=== PATIENT | female | born 1945 | race African-American/Black ===

== ENCOUNTER 2021-03-25 20:30 | Observation (INO) ==
[2021-03-26] MEDS ORDERED: ONDANSETRON 4 MG/2 ML VIAL IV STA (00:54)
[2021-03-26 02:17] LABS: Basophils % 0.2 % (0.0-0.8); Hematocrit 34.1 VOL% (35.7-47.0); Hemoglobin 11.2 GM/DL (12.0-16.0); Immature Granulocytes % 0.6 %; Immature Granulocytes Absolute 0.06 #; Lymphocytes # 1.5 10*3/uL (1.4-4.0); Lymphocytes % 14.2 % (21.3-54.2); Mean Corpuscular HGB Conc 32.8 GM/DL (32-36); Mean Platelet Volume 9.5 FL (9.6-12.0); Monocytes % 0.9 % (1.7-12.7); Neutrophils % 84.1 % (38.7-73.9); Platelet Count 334 T/CUMM (130-400); Red Blood Count 3.48 MC/CUMM (3.8-5.5); White Blood Count 10.6 T/CUMM (4-12)
[2021-03-26 02:32] LABS: INR 3.6; PT Patient Result 36.6 SECS (10.5-12.0)
[2021-03-26 02:37] LABS: Bacteria,Urine Occasional /HPF (Few); Bilirubin,Urine Negative (Negative); Blood, Urine Negative (Negative); Glucose,Urine (UA) Negative (Negative); Ketones,Urine Negative (Negative); Mucus,Urine Occasional /LPF (Occasional); Nitrite,Urine Negative (Negative); Protein,Urine Negative; RBC,Urine 4 /HPF (0-4); Squamous Epithelial Cell,Urine Occasional /HPF (0-10); Urine Appearance CLEAR (Clear); Urine Color Yellow (Yellow); Urine Specific Gravity 1.021 (1.001-1.035); Urine Urobilinogen < 2.0 EU/DL (0.2-1.0)
[2021-03-26] MEDS ORDERED: ALBUTEROL/IPRATROPIUM 3 ML NEB RESP TX STA (02:41)
[2021-03-26 02:52] LABS: Albumin 4.1 G/DL (3.4-5.0); Bilirubin,Total 0.4 MG/DL (0.2-1.0); Calcium 9.8 MG/DL (8.5-10.1); Ferritin 67.5 ng/ml (8-252); Potassium 4.3 MMOL/L (3.5-5.1); Total Protein 8.4 G/DL (6.4-8.2)
[2021-03-26] MEDS ORDERED: GLUCAGON 1 MG VIAL IM PRN (05:24)
[2021-03-26] MEDS ORDERED: DEXTROSE 50% 25 GM/50 ML VIAL IV PRN (05:24)
[2021-03-26] MEDS ORDERED: diphenhydrAMINE CAP 25 MG CAPSULE PO PRN (05:24)
[2021-03-26] MEDS ORDERED: hydrALAZINE 20 MG/1 ML VIAL IV PRN (05:24)
[2021-03-26] MEDS ORDERED: ONDANSETRON 4 MG/2 ML VIAL IV PRN (05:24)
[2021-03-26] MEDS ORDERED: NICOTINE 21 MG/24 HR PATCH TRANSDERM PRN (05:24)
[2021-03-26] MEDS ORDERED: guaiFENesin/DM ER 600-30 MG TABLET PO PRN (05:24)
[2021-03-26] MEDS ORDERED: SODIUM CHLORIDE 0.9% 1,000 ML IV SCH (05:30)
[2021-03-26] MEDS: SODIUM CHLORIDE 0.9% 500 ML IV ONE ×2 (05:51→05:57)
[2021-03-26 05:54] VITALS: BP 125/57
[2021-03-26] MEDS ORDERED: NITROGLYCERIN SL 0.4 MG TABLET SL PRN (06:40)
[2021-03-26] MEDS ORDERED: ALBUTEROL/IPRATROPIUM 3 ML NEB RESP TX SCH (07:00)
[2021-03-26] MEDS ORDERED: SPIRONOLACTONE 25 MG TABLET PO SCH (09:00)
[2021-03-26] MEDS ORDERED: valACYclovir 500 MG TABLET PO SCH (09:00)
[2021-03-26] MEDS ORDERED: ATORVASTATIN 80 MG TABLET PO SCH ×2 (09:00→21:00)
[2021-03-26] MEDS ORDERED: TOPIRAMATE 25 MG TABLET PO SCH (09:00)
[2021-03-26] MEDS ORDERED: ENOXAPARIN 40 MG/0.4 ML SYRINGE SUBCUT SCH (09:00)
[2021-03-26] MEDS ORDERED: WARFARIN 3 MG TABLET PO SCH (09:00)
[2021-03-26] MEDS ORDERED: amLODIPine 5 MG TABLET PO SCH (09:00)
[2021-03-26] MEDS ORDERED: GABAPENTIN 600 MG TABLET PO SCH (09:00)
[2021-03-26] MEDS ORDERED: METOPROLOL TARTRATE 25 MG TABLET PO SCH (09:00)
[2021-03-26] MEDS ORDERED: DONEPEZIL 10 MG TABLET PO SCH (21:00)
== END 2021-03-26 14:19 | disposition home or self-care (01) ==
LOC: N.ED 20:30 → N.EDINP 20:30 → SUATTDRO 03-26 03:30 → N.CC 03-26 05:38
PROVIDERS: ADMIT Internal Medicine; ATTEND Internal Medicine

== ENCOUNTER 2021-06-12 16:39 | Inpatient (IN) ==
[2021-06-12] MEDS ORDERED: MORPHINE 2 MG/1 ML SYRINGE IV STA (17:08)
[2021-06-12] MEDS ORDERED: ONDANSETRON 4 MG/2 ML VIAL IV STA (17:08)
[2021-06-12 17:34] LABS: Basophils % 0.5 % (0.0-0.8); Eosinophils # 0.1 10*3/uL (0.0-0.87); Eosinophils % 2.1 % (0.00-10.9); Hematocrit 39.3 VOL% (35.7-47.0); Hemoglobin 13.1 GM/DL (12.0-16.0); Immature Granulocytes % 0.5 %; Immature Granulocytes Absolute 0.02 #; Lymphocytes # 1.5 10*3/uL (1.4-4.0); Lymphocytes % 33.2 % (21.3-54.2); Mean Corpuscular HGB Conc 33.3 GM/DL (32-36); Mean Corpuscular Volume 96.6 FL (87-102); Mean Platelet Volume 9.1 FL (9.6-12.0); Neutrophils % 52.7 % (38.7-73.9); Platelet Count 247 T/CUMM (130-400); Red Blood Count 4.07 MC/CUMM (3.8-5.5); White Blood Count 4.4 T/CUMM (4-12)
[2021-06-12 18:02] LABS: Albumin 3.5 G/DL (3.4-5.0); Bilirubin,Total 0.7 MG/DL (0.20-1.00); Calcium 9.1 MG/DL (8.5-10.1); Osmolality,Calculated 275.7 MOS/KG (273-304); Potassium 2.7 MMOL/L (3.5-5.1); Total Protein 7.7 G/DL (6.4-8.2)
[2021-06-12] MEDS ORDERED: SODIUM CHLORIDE 0.9% 500 ML IV STA (18:41)
[2021-06-12] MEDS ORDERED: POTASSIUM BICARB EFFERVESCENT 25 MEQ TAB.EFF PO STA (18:41)
[2021-06-12] MEDS ORDERED: POTASSIUM CHLORIDE RIDER 10 MEQ/100 ML PREMIX IV ONE (18:41)
[2021-06-12] MEDS ORDERED: diphenhydrAMINE CAP 25 MG CAPSULE PO PRN (20:08)
[2021-06-12] MEDS ORDERED: ACETAMINOPHEN 325 MG TABLET PO PRN (20:08)
[2021-06-12] MEDS ORDERED: DEXTROSE 50% 25 GM/50 ML VIAL IV PRN (20:08)
[2021-06-12] MEDS ORDERED: MAGNESIUM SULF RIDER 4 GM/100 ML PREMIX IV PRN (20:08)
[2021-06-12] MEDS ORDERED: GLUCAGON 1 MG VIAL IM PRN (20:08)
[2021-06-12] MEDS ORDERED: SIMETHICONE CHEW 125 MG TABLET PO PRN (20:19)
[2021-06-12] MEDS ORDERED: ONDANSETRON 4 MG/2 ML VIAL IV PRN (20:19)
[2021-06-12] MEDS: INSULIN REGULAR 100 UNIT/ML SUBCUT SCH (23:45)
[2021-06-13] MEDS: HYDROmorphone 2 MG/1 ML VIAL IV PRN ×3 (02:34→16:45)
[2021-06-13 06:17] LABS: Basophils % 0.4 % (0.0-0.8); Eosinophils # 0.2 10*3/uL (0.0-0.87); Eosinophils % 3.1 % (0.00-10.9); Hematocrit 35.7 VOL% (35.7-47.0); Hemoglobin 11.9 GM/DL (12.0-16.0); Immature Granulocytes % 0.4 %; Immature Granulocytes Absolute 0.02 #; Lymphocytes # 1.8 10*3/uL (1.4-4.0); Lymphocytes % 35.6 % (21.3-54.2); Mean Corpuscular HGB Conc 33.3 GM/DL (32-36); Mean Platelet Volume 9.4 FL (9.6-12.0); Monocytes % 12.8 % (1.7-12.7); Neutrophils % 47.7 % (38.7-73.9); Platelet Count 240 T/CUMM (130-400); Red Blood Count 3.72 MC/CUMM (3.8-5.5); White Blood Count 5.1 T/CUMM (4-12)
[2021-06-13 07:01] LABS: Calcium 8.8 MG/DL (8.5-10.1); Osmolality,Calculated 274.5 MOS/KG (273-304); Potassium 2.7 MMOL/L (3.5-5.1); Risk Ratio 5.47; Thyroid Stimulating Hormone 1.54 uIU/ml (0.358-3.74); VLDL Cholesterol 35.6 MG/DL
[2021-06-13 07:17] LABS: Platelet Estimate Normal
[2021-06-13 07:18] LABS: Anisocytosis 1+; Macrocytosis 1+; Tear Drop Cells Few
[2021-06-13] MEDS: INSULIN REGULAR 100 UNIT/ML SUBCUT SCH ×4 (08:09→20:47)
[2021-06-13] MEDS: PANTOPRAZOLE 40 MG TABLET PO SCH (09:27)
[2021-06-13] MEDS: POTASSIUM CHLORIDE RIDER 10 MEQ/100 ML PREMIX IV PRN ×8 (10:20→23:22)
[2021-06-13] MEDS ORDERED: MAGNESIUM SULF RIDER 2 GM/50 ML PREMIX IV ONE (13:18)
[2021-06-13] MEDS: POTASSIUM CHLORIDE RIDER 10 MEQ/100 ML PREMIX IV SCH ×3 (13:39→14:59)
[2021-06-13] MEDS: HYOSCYAMINE 0.125 MG TABLET PO SCH ×2 (13:55→18:05)
[2021-06-13 14:23] LABS: INR 1.1; PT Patient Result 12.5 SECS (10.5-12.0)
[2021-06-13] MEDS: HEPARIN DRIP 25,000 UNITS/500 ML PREMIX IV SCH (16:45)
[2021-06-13 23:23] LABS: INR 1.1; PT Patient Result 12.4 SECS (10.5-12.0)
[2021-06-14] MEDS: POTASSIUM CHLORIDE RIDER 10 MEQ/100 ML PREMIX IV PRN (00:26)
[2021-06-14] MEDS: HYOSCYAMINE 0.125 MG TABLET PO SCH ×4 (02:12→18:10)
[2021-06-14 05:23] LABS: Basophils % 0.5 % (0.0-0.8); Eosinophils # 0.1 10*3/uL (0.0-0.87); Eosinophils % 2.1 % (0.00-10.9); Hemoglobin 12.2 GM/DL (12.0-16.0); Immature Granulocytes % 0.4 %; Immature Granulocytes Absolute 0.02 #; Lymphocytes # 1.2 10*3/uL (1.4-4.0); Lymphocytes % 21.8 % (21.3-54.2); Mean Corpuscular Volume 98.4 FL (87-102); Mean Platelet Volume 9.7 FL (9.6-12.0); Monocytes % 9.7 % (1.7-12.7); Neutrophils % 65.5 % (38.7-73.9); Platelet Count 269 T/CUMM (130-400); Red Blood Count 3.76 MC/CUMM (3.8-5.5); Red Cell Distribution Width 12.9 % (9.3-17.3); White Blood Count 5.7 T/CUMM (4-12)
[2021-06-14 05:29] LABS: INR 1.1; PT Patient Result 12.1 SECS (10.5-12.0)
[2021-06-14 05:34] LABS: Calcium 8.9 MG/DL (8.5-10.1); Osmolality,Calculated 271.8 MOS/KG (273-304); Potassium 3.8 MMOL/L (3.5-5.1)
[2021-06-14] MEDS: MAGNESIUM SULF RIDER 2 GM/50 ML PREMIX IV PRN (06:29)
[2021-06-14] MEDS: PANTOPRAZOLE 40 MG TABLET PO SCH (08:35)
[2021-06-14] MEDS: INSULIN REGULAR 100 UNIT/ML SUBCUT SCH ×4 (08:36→22:34)
[2021-06-14 10:42] LABS: INR 1.1; PT Patient Result 12.3 SECS (10.5-12.0)
[2021-06-14] MEDS: HYDROmorphone 2 MG/1 ML VIAL IV PRN (11:54)
[2021-06-14] MEDS ORDERED: MELATONIN 3 MG TABLET PO PRN (14:55)
[2021-06-14] MEDS ORDERED: tiZANidine 4 MG TABLET PO PRN (14:55)
[2021-06-14] MEDS: GABAPENTIN 600 MG TABLET PO SCH ×2 (16:45→22:34)
[2021-06-14 17:52] LABS: INR 1.1; PT Patient Result 11.7 SECS (10.5-12.0)
[2021-06-14] MEDS: DONEPEZIL 10 MG TABLET PO SCH (22:34)
[2021-06-14] MEDS: METOPROLOL TARTRATE 25 MG TABLET PO SCH (22:34)
[2021-06-14] MEDS: QUEtiapine 100 MG TABLET PO SCH (22:34)
[2021-06-14 23:40] LABS: INR 1.1; PT Patient Result 11.9 SECS (10.5-12.0)
[2021-06-15] MEDS: HYOSCYAMINE 0.125 MG TABLET PO SCH ×4 (02:00→18:00)
[2021-06-15] MEDS: HEPARIN DRIP 25,000 UNITS/500 ML PREMIX IV SCH ×2 (02:00→15:36)
[2021-06-15 05:53] LABS: Basophils % 0.4 % (0.0-0.8); Eosinophils # 0.2 10*3/uL (0.0-0.87); Eosinophils % 3.2 % (0.00-10.9); Hematocrit 36.2 VOL% (35.7-47.0); Hemoglobin 11.9 GM/DL (12.0-16.0); Immature Granulocytes % 0.2 %; Immature Granulocytes Absolute 0.01 #; Lymphocytes # 1.4 10*3/uL (1.4-4.0); Lymphocytes % 28.6 % (21.3-54.2); Mean Corpuscular HGB Conc 32.9 GM/DL (32-36); Mean Corpuscular Volume 98.4 FL (87-102); Mean Platelet Volume 9.9 FL (9.6-12.0); Monocytes % 9.5 % (1.7-12.7); Neutrophils % 58.1 % (38.7-73.9); Platelet Count 281 T/CUMM (130-400); Red Blood Count 3.68 MC/CUMM (3.8-5.5); Red Cell Distribution Width 12.8 % (9.3-17.3); White Blood Count 4.8 T/CUMM (4-12)
[2021-06-15 05:54] LABS: Calcium 9.2 MG/DL (8.5-10.1); Osmolality,Calculated 275.4 MOS/KG (273-304); Potassium 3.4 MMOL/L (3.5-5.1)
[2021-06-15 05:54] LABS: INR 1.1; PT Patient Result 11.8 SECS (10.5-12.0)
[2021-06-15 06:18] LABS: Hypochromasia 1+; Microcytosis 1+; Ovalocytes Slight; Platelet Estimate Adequate
[2021-06-15] MEDS: INSULIN REGULAR 100 UNIT/ML SUBCUT SCH ×4 (07:55→20:50)
[2021-06-15] MEDS: METOPROLOL TARTRATE 25 MG TABLET PO SCH ×2 (08:26→20:50)
[2021-06-15] MEDS: CHOLECALCIFEROL 5,000 UNIT TABLET PO SCH (08:26)
[2021-06-15] MEDS: SPIRONOLACTONE 25 MG TABLET PO SCH (08:26)
[2021-06-15] MEDS: GABAPENTIN 600 MG TABLET PO SCH ×3 (08:26→20:50)
[2021-06-15] MEDS: PANTOPRAZOLE 40 MG TABLET PO SCH (08:27)
[2021-06-15] MEDS: amLODIPine 5 MG TABLET PO SCH (08:27)
[2021-06-15] MEDS ORDERED: ATORVASTATIN 80 MG TABLET PO SCH (09:00)
[2021-06-15 11:14] LABS: PT Patient Result 11.5 SECS (10.5-12.0)
[2021-06-15] MEDS ORDERED: POTASSIUM CHLORIDE 10 MEQ TABLET PO ONE (14:30)
[2021-06-15] MEDS ORDERED: BISACODYL 5 MG TABLET PO ONE (14:30)
[2021-06-15 17:07] LABS: PT Patient Result 11.5 SECS (10.5-12.0)
[2021-06-15] MEDS ORDERED: POLYETHYLENE GLYCOL POWDER 255 GM BOTTLE PO ONE (18:00)
[2021-06-15] MEDS: QUEtiapine 100 MG TABLET PO SCH (20:50)
[2021-06-15] MEDS: ATORVASTATIN 80 MG TABLET PO SCH (20:50)
[2021-06-15] MEDS: DONEPEZIL 10 MG TABLET PO SCH (20:50)
[2021-06-15] MEDS ORDERED: MAGNESIUM CITRATE 300 ML BOTTLE PO ONE (21:00)
[2021-06-16] MEDS: HYOSCYAMINE 0.125 MG TABLET PO SCH ×4 (01:17→18:40)
[2021-06-16 05:17] LABS: Basophils % 0.5 % (0.0-0.8); Eosinophils # 0.1 10*3/uL (0.0-0.87); Eosinophils % 2.1 % (0.00-10.9); Hematocrit 37.6 VOL% (35.7-47.0); Hemoglobin 12.5 GM/DL (12.0-16.0); Immature Granulocytes % 0.7 %; Immature Granulocytes Absolute 0.04 #; Lymphocytes # 1.5 10*3/uL (1.4-4.0); Lymphocytes % 25.8 % (21.3-54.2); Mean Corpuscular HGB Conc 33.2 GM/DL (32-36); Mean Corpuscular Volume 98.4 FL (87-102); Mean Platelet Volume 9.6 FL (9.6-12.0); Monocytes % 9.4 % (1.7-12.7); Neutrophils % 61.5 % (38.7-73.9); Platelet Count 288 T/CUMM (130-400); Red Blood Count 3.82 MC/CUMM (3.8-5.5); White Blood Count 5.7 T/CUMM (4-12)
[2021-06-16 05:28] LABS: PT Patient Result 11.2 SECS (10.5-12.0)
[2021-06-16 05:37] LABS: Calcium 9.7 MG/DL (8.5-10.1); Osmolality,Calculated 273.5 MOS/KG (273-304); Potassium 3.2 MMOL/L (3.5-5.1)
[2021-06-16] MEDS: INSULIN REGULAR 100 UNIT/ML SUBCUT SCH ×4 (08:51→21:17)
[2021-06-16] MEDS: amLODIPine 5 MG TABLET PO SCH (09:47)
[2021-06-16] MEDS: METOPROLOL TARTRATE 25 MG TABLET PO SCH ×2 (09:47→21:16)
[2021-06-16] MEDS: SPIRONOLACTONE 25 MG TABLET PO SCH (09:47)
[2021-06-16] MEDS: CHOLECALCIFEROL 5,000 UNIT TABLET PO SCH (09:47)
[2021-06-16] MEDS: PANTOPRAZOLE 40 MG TABLET PO SCH (09:47)
[2021-06-16] MEDS: GABAPENTIN 600 MG TABLET PO SCH ×3 (09:47→21:17)
[2021-06-16] MEDS: LACTATED RINGERS 1,000 ML IV SCH (10:46)
[2021-06-16] MEDS ORDERED: propofoL 200 MG/20 ML VIAL IV ONE (12:59)
[2021-06-16] MEDS ORDERED: LIDOCAINE 2% 5 ML VIAL ONE (12:59)
[2021-06-16] MEDS: HYDROmorphone 2 MG/1 ML VIAL IV PRN (14:46)
[2021-06-16] MEDS: POTASSIUM CHLORIDE RIDER 10 MEQ/100 ML PREMIX IV PRN ×4 (15:25→22:38)
[2021-06-16] MEDS: HYDROCORTISONE 25 MG SUPP RECTAL PRN (17:47)
[2021-06-16] MEDS: QUEtiapine 100 MG TABLET PO SCH (21:17)
[2021-06-16] MEDS: DONEPEZIL 10 MG TABLET PO SCH (21:17)
[2021-06-16] MEDS: ATORVASTATIN 80 MG TABLET PO SCH (21:17)
[2021-06-16] MEDS: AMITRIPTYLINE 25 MG TABLET PO SCH (21:17)
[2021-06-17] MEDS: HYOSCYAMINE 0.125 MG TABLET PO SCH ×6 (01:08→18:01)
[2021-06-17 06:06] LABS: Basophils % 0.9 % (0.0-0.8); Eosinophils # 0.1 10*3/uL (0.0-0.87); Eosinophils % 3.2 % (0.00-10.9); Hematocrit 30.2 VOL% (35.7-47.0); Immature Granulocytes % 0.6 %; Immature Granulocytes Absolute 0.02 #; Lymphocytes # 1.1 10*3/uL (1.4-4.0); Lymphocytes % 32.3 % (21.3-54.2); Mean Corpuscular HGB Conc 32.1 GM/DL (32-36); Mean Corpuscular Volume 103.8 FL (87-102); Mean Platelet Volume 9.2 FL (9.6-12.0)
[2021-06-17 06:18] LABS: Calcium 9.2 MG/DL (8.5-10.1); Hemoglobin 9.7 GM/DL (12.0-16.0); Osmolality,Calculated 276.3 MOS/KG (273-304); Platelet Count 173 T/CUMM (130-400); Potassium 4.1 MMOL/L (3.5-5.1); Red Blood Count 2.91 MC/CUMM (3.8-5.5); White Blood Count 3.5 T/CUMM (4-12)
[2021-06-17 06:18] LABS: PT Patient Result 11.1 SECS (10.5-12.0)
[2021-06-17] MEDS ORDERED: POLYETHYLENE GLYCOL POWDER 17 GM PACK PO PRN (09:27)
[2021-06-17] MEDS: DOCUSATE SODIUM 100 MG CAPSULE PO PRN ×2 (10:40→21:53)
[2021-06-17] MEDS: INSULIN REGULAR 100 UNIT/ML SUBCUT SCH ×4 (10:40→22:23)
[2021-06-17] MEDS: PANTOPRAZOLE 40 MG TABLET PO SCH (10:41)
[2021-06-17] MEDS: CHOLECALCIFEROL 5,000 UNIT TABLET PO SCH (10:41)
[2021-06-17] MEDS: METOPROLOL TARTRATE 25 MG TABLET PO SCH ×2 (10:41→21:53)
[2021-06-17] MEDS: GABAPENTIN 600 MG TABLET PO SCH ×3 (10:42→21:53)
[2021-06-17] MEDS: SPIRONOLACTONE 25 MG TABLET PO SCH (10:42)
[2021-06-17] MEDS: amLODIPine 5 MG TABLET PO SCH (10:43)
[2021-06-17] MEDS: MAGNESIUM SULF RIDER 2 GM/50 ML PREMIX IV PRN (10:50)
[2021-06-17] MEDS: HYDROCORTISONE 25 MG SUPP RECTAL PRN (11:58)
[2021-06-17] MEDS ORDERED: tiZANidine 4 MG TABLET PO ONE (14:13)
[2021-06-17] MEDS: HEPARIN DRIP 25,000 UNITS/500 ML PREMIX IV SCH (14:54)
[2021-06-17] MEDS: HYDROmorphone 2 MG/1 ML VIAL IV PRN ×2 (15:37→21:55)
[2021-06-17] MEDS ORDERED: MAGNESIUM SULF RIDER 2 GM/50 ML PREMIX IV ONE (15:37)
[2021-06-17 16:11] LABS: Bacteria,Urine Occasional /HPF (Few); Bilirubin,Urine Negative (Negative); Blood, Urine Small mg/dL (Negative); Glucose,Urine (UA) Negative (Negative); Ketones,Urine Negative (Negative); Mucus,Urine Occasional /LPF (Occasional); Nitrite,Urine Negative (Negative); Protein,Urine Negative; RBC,Urine 10 /HPF (0-4); Squamous Epithelial Cell,Urine Occasional /HPF (0-10); Urine Appearance Slightly Hazy (Clear); Urine Color Straw (Yellow); Urine Specific Gravity 1.004 (1.001-1.035); Urine Urobilinogen < 2.0 EU/DL (0.2-1.0)
[2021-06-17] MEDS: WARFARIN 5 MG TABLET PO SCH (17:58)
[2021-06-17] MEDS: ATORVASTATIN 80 MG TABLET PO SCH (21:53)
[2021-06-17] MEDS: tiZANidine 4 MG TABLET PO SCH (21:54)
[2021-06-17] MEDS: QUEtiapine 100 MG TABLET PO SCH (21:54)
[2021-06-17] MEDS: AMITRIPTYLINE 25 MG TABLET PO SCH (21:54)
[2021-06-17] MEDS: DONEPEZIL 10 MG TABLET PO SCH (21:54)
[2021-06-18] MEDS: HYOSCYAMINE 0.125 MG TABLET PO SCH ×4 (01:31→18:59)
[2021-06-18] MEDS: LACTATED RINGERS 1,000 ML IV SCH ×2 (04:31→09:18)
[2021-06-18 05:07] LABS: Basophils # 0.1 10*3/uL (0.0-0.2); Basophils % 0.9 % (0.0-0.8); Eosinophils # 0.2 10*3/uL (0.0-0.87); Eosinophils % 3.3 % (0.00-10.9); Hematocrit 31.8 VOL% (35.7-47.0); Hemoglobin 10.5 GM/DL (12.0-16.0); Immature Granulocytes % 0.5 %; Immature Granulocytes Absolute 0.03 #; Lymphocytes # 1.9 10*3/uL (1.4-4.0); Lymphocytes % 33.6 % (21.3-54.2); Mean Corpuscular Volume 97.8 FL (87-102); Mean Platelet Volume 9.3 FL (9.6-12.0); Monocytes % 10.9 % (1.7-12.7); Neutrophils % 50.8 % (38.7-73.9); Platelet Count 237 T/CUMM (130-400); Red Blood Count 3.25 MC/CUMM (3.8-5.5); Red Cell Distribution Width 12.8 % (9.3-17.3); White Blood Count 5.5 T/CUMM (4-12)
[2021-06-18 05:22] LABS: PT Patient Result 11.5 SECS (10.5-12.0)
[2021-06-18 05:30] LABS: Anisocytosis 2+; Burr Cells Few; Pappenheimer Bodies Few; Platelet Estimate Normal; Poikilocytosis Slight; Tear Drop Cells Few
[2021-06-18 05:31] LABS: Macrocytosis Slight
[2021-06-18 05:33] LABS: Calcium 8.9 MG/DL (8.5-10.1); Osmolality,Calculated 278.3 MOS/KG (273-304); Potassium 3.6 MMOL/L (3.5-5.1)
[2021-06-18] MEDS: INSULIN REGULAR 100 UNIT/ML SUBCUT SCH ×4 (07:44→21:59)
[2021-06-18] MEDS: GABAPENTIN 600 MG TABLET PO SCH ×3 (09:16→22:00)
[2021-06-18] MEDS: CHOLECALCIFEROL 5,000 UNIT TABLET PO SCH (09:17)
[2021-06-18] MEDS: METOPROLOL TARTRATE 25 MG TABLET PO SCH ×2 (09:18→22:00)
[2021-06-18] MEDS: PANTOPRAZOLE 40 MG TABLET PO SCH (09:18)
[2021-06-18] MEDS: tiZANidine 4 MG TABLET PO SCH ×2 (09:18→22:00)
[2021-06-18] MEDS: amLODIPine 5 MG TABLET PO SCH (09:18)
[2021-06-18] MEDS: SPIRONOLACTONE 25 MG TABLET PO SCH (09:18)
[2021-06-18] MEDS: HYDROmorphone 2 MG/1 ML VIAL IV PRN (11:41)
[2021-06-18] MEDS ORDERED: POTASSIUM CHLORIDE 20 MEQ TABLET PO ONE (13:30)
[2021-06-18] MEDS ORDERED: ALBUTEROL 2.5 MG/3 ML NEB RESP TX PRN (14:54)
[2021-06-18] MEDS: NITROGLYCERIN 2% OINT 1 INCH/GM PACK TOP SCH ×2 (15:41→21:51)
[2021-06-18] MEDS: HEPARIN DRIP 25,000 UNITS/500 ML PREMIX IV SCH (15:42)
[2021-06-18] MEDS: WARFARIN 5 MG TABLET PO SCH (17:04)
[2021-06-18] MEDS: MAGNESIUM SULF RIDER 2 GM/50 ML PREMIX IV PRN (17:04)
[2021-06-18] MEDS: DONEPEZIL 10 MG TABLET PO SCH (22:00)
[2021-06-18] MEDS: ATORVASTATIN 80 MG TABLET PO SCH (22:00)
[2021-06-18] MEDS: DOCUSATE SODIUM 100 MG CAPSULE PO PRN (22:00)
[2021-06-18] MEDS: AMITRIPTYLINE 25 MG TABLET PO SCH (22:00)
[2021-06-18] MEDS: QUEtiapine 100 MG TABLET PO SCH (22:00)
[2021-06-19] MEDS: HYOSCYAMINE 0.125 MG TABLET PO SCH ×4 (03:49→18:11)
[2021-06-19 05:50] LABS: INR 1.1; PT Patient Result 11.7 SECS (10.5-12.0)
[2021-06-19] MEDS: HYDROCORTISONE 25 MG SUPP RECTAL PRN ×2 (06:38→15:09)
[2021-06-19] MEDS: HYDROmorphone 2 MG/1 ML VIAL IV PRN ×2 (08:10→15:44)
[2021-06-19] MEDS: INSULIN REGULAR 100 UNIT/ML SUBCUT SCH ×4 (09:14→22:50)
[2021-06-19] MEDS: GABAPENTIN 600 MG TABLET PO SCH ×3 (09:39→21:49)
[2021-06-19] MEDS: tiZANidine 4 MG TABLET PO SCH ×2 (09:39→21:50)
[2021-06-19] MEDS: PANTOPRAZOLE 40 MG TABLET PO SCH (09:39)
[2021-06-19] MEDS: CHOLECALCIFEROL 5,000 UNIT TABLET PO SCH (09:39)
[2021-06-19] MEDS: SPIRONOLACTONE 25 MG TABLET PO SCH (11:27)
[2021-06-19] MEDS: amLODIPine 5 MG TABLET PO SCH (11:33)
[2021-06-19] MEDS: NITROGLYCERIN 2% OINT 1 INCH/GM PACK TOP SCH ×2 (11:33→21:50)
[2021-06-19] MEDS: METOPROLOL TARTRATE 25 MG TABLET PO SCH ×2 (11:33→21:50)
[2021-06-19] MEDS: LACTATED RINGERS 1,000 ML IV SCH (15:45)
[2021-06-19] MEDS: WARFARIN 5 MG TABLET PO SCH (18:16)
[2021-06-19] MEDS: ATORVASTATIN 80 MG TABLET PO SCH (21:49)
[2021-06-19] MEDS: AMITRIPTYLINE 25 MG TABLET PO SCH (21:49)
[2021-06-19] MEDS: QUEtiapine 100 MG TABLET PO SCH (21:49)
[2021-06-19] MEDS: DONEPEZIL 10 MG TABLET PO SCH (21:50)
[2021-06-19] MEDS: DOCUSATE SODIUM 100 MG CAPSULE PO PRN (21:50)
[2021-06-19] MEDS: HEPARIN DRIP 25,000 UNITS/500 ML PREMIX IV SCH (23:31)
[2021-06-20] MEDS: HYOSCYAMINE 0.125 MG TABLET PO SCH ×4 (01:47→19:06)
[2021-06-20 06:34] LABS: Basophils % 0.7 % (0.0-0.8); Eosinophils # 0.2 10*3/uL (0.0-0.87); Hematocrit 34.2 VOL% (35.7-47.0); Hemoglobin 11.2 GM/DL (12.0-16.0); Immature Granulocytes % 0.5 %; Immature Granulocytes Absolute 0.03 #; Lymphocytes # 1.8 10*3/uL (1.4-4.0); Lymphocytes % 30.3 % (21.3-54.2); Mean Corpuscular HGB Conc 32.7 GM/DL (32-36); Mean Corpuscular Volume 98.6 FL (87-102); Mean Platelet Volume 9.5 FL (9.6-12.0); Monocytes % 11.3 % (1.7-12.7); Neutrophils % 54.2 % (38.7-73.9); Platelet Count 249 T/CUMM (130-400); Red Blood Count 3.47 MC/CUMM (3.8-5.5); Red Cell Distribution Width 12.8 % (9.3-17.3)
[2021-06-20 06:48] LABS: Calcium 9.4 MG/DL (8.5-10.1); Osmolality,Calculated 278.3 MOS/KG (273-304); Potassium 3.9 MMOL/L (3.5-5.1)
[2021-06-20 07:01] LABS: INR 1.1; PT Patient Result 12.4 SECS (10.5-12.0)
[2021-06-20] MEDS: INSULIN REGULAR 100 UNIT/ML SUBCUT SCH ×4 (07:27→23:45)
[2021-06-20] MEDS: amLODIPine 5 MG TABLET PO SCH (08:30)
[2021-06-20] MEDS: tiZANidine 4 MG TABLET PO SCH ×2 (08:30→20:43)
[2021-06-20] MEDS: CHOLECALCIFEROL 5,000 UNIT TABLET PO SCH (08:30)
[2021-06-20] MEDS: PANTOPRAZOLE 40 MG TABLET PO SCH (08:30)
[2021-06-20] MEDS: METOPROLOL TARTRATE 25 MG TABLET PO SCH ×2 (08:30→20:44)
[2021-06-20] MEDS: SPIRONOLACTONE 25 MG TABLET PO SCH (08:31)
[2021-06-20] MEDS: GABAPENTIN 600 MG TABLET PO SCH ×3 (08:31→20:44)
[2021-06-20] MEDS: NITROGLYCERIN 2% OINT 1 INCH/GM PACK TOP SCH ×2 (08:31→20:45)
[2021-06-20] MEDS ORDERED: MAGNESIUM SULF RIDER 2 GM/50 ML PREMIX IV ONE (10:33)
[2021-06-20] MEDS: LIDOCAINE 5% PATCH TRANSDERM SCH (13:24)
[2021-06-20] MEDS: LACTATED RINGERS 1,000 ML IV SCH (17:16)
[2021-06-20] MEDS ORDERED: WARFARIN 5 MG TABLET PO ONE (18:00)
[2021-06-20] MEDS: ATORVASTATIN 80 MG TABLET PO SCH (20:43)
[2021-06-20] MEDS: DOCUSATE SODIUM 100 MG CAPSULE PO PRN (20:43)
[2021-06-20] MEDS: DONEPEZIL 10 MG TABLET PO SCH (20:43)
[2021-06-20] MEDS: AMITRIPTYLINE 25 MG TABLET PO SCH (20:44)
[2021-06-20] MEDS: QUEtiapine 100 MG TABLET PO SCH (20:44)
[2021-06-21] MEDS: HYOSCYAMINE 0.125 MG TABLET PO SCH ×4 (00:52→18:01)
[2021-06-21 02:24] LABS: Basophils % 0.7 % (0.0-0.8); Eosinophils # 0.2 10*3/uL (0.0-0.87); Eosinophils % 2.9 % (0.00-10.9); Hemoglobin 11.2 GM/DL (12.0-16.0); Immature Granulocytes % 0.4 %; Immature Granulocytes Absolute 0.02 #; Lymphocytes # 1.8 10*3/uL (1.4-4.0); Lymphocytes % 31.9 % (21.3-54.2); Mean Corpuscular HGB Conc 32.9 GM/DL (32-36); Mean Corpuscular Volume 97.4 FL (87-102); Mean Platelet Volume 9.2 FL (9.6-12.0); Monocytes % 11.6 % (1.7-12.7); Neutrophils % 52.5 % (38.7-73.9); Platelet Count 240 T/CUMM (130-400); Red Blood Count 3.49 MC/CUMM (3.8-5.5); Red Cell Distribution Width 12.9 % (9.3-17.3); White Blood Count 5.5 T/CUMM (4-12)
[2021-06-21 02:40] LABS: Calcium 9.4 MG/DL (8.5-10.1); Osmolality,Calculated 274.7 MOS/KG (273-304)
[2021-06-21 02:47] LABS: INR 1.2; PT Patient Result 13.4 SECS (10.5-12.0)
[2021-06-21] MEDS: DOCUSATE SODIUM 100 MG CAPSULE PO PRN (06:18)
[2021-06-21] MEDS: HEPARIN DRIP 25,000 UNITS/500 ML PREMIX IV SCH (07:01)
[2021-06-21] MEDS: LACTATED RINGERS 1,000 ML IV SCH (09:17)
[2021-06-21] MEDS: INSULIN REGULAR 100 UNIT/ML SUBCUT SCH ×4 (09:17→21:11)
[2021-06-21] MEDS: LIDOCAINE 5% PATCH TRANSDERM SCH (09:30)
[2021-06-21] MEDS: HYDROCORTISONE 25 MG SUPP RECTAL PRN (09:30)
[2021-06-21] MEDS: METOPROLOL TARTRATE 25 MG TABLET PO SCH ×2 (10:11→20:32)
[2021-06-21] MEDS: PANTOPRAZOLE 40 MG TABLET PO SCH (10:12)
[2021-06-21] MEDS: CHOLECALCIFEROL 5,000 UNIT TABLET PO SCH (10:12)
[2021-06-21] MEDS: GABAPENTIN 600 MG TABLET PO SCH ×3 (10:12→20:31)
[2021-06-21] MEDS: amLODIPine 5 MG TABLET PO SCH (10:12)
[2021-06-21] MEDS: tiZANidine 4 MG TABLET PO SCH ×2 (10:12→20:33)
[2021-06-21] MEDS: SPIRONOLACTONE 25 MG TABLET PO SCH (10:14)
[2021-06-21] MEDS: NITROGLYCERIN 2% OINT 1 INCH/GM PACK TOP SCH ×2 (10:14→20:32)
[2021-06-21] MEDS: HYDROmorphone 2 MG/1 ML VIAL IV PRN ×3 (10:57→22:04)
[2021-06-21] MEDS: fentaNYL 12 MCG/HR PATCH TRANSDERM SCH (12:13)
[2021-06-21] MEDS: WARFARIN 5 MG TABLET PO SCH (18:01)
[2021-06-21] MEDS: DONEPEZIL 10 MG TABLET PO SCH (20:31)
[2021-06-21] MEDS: ATORVASTATIN 80 MG TABLET PO SCH (20:32)
[2021-06-21] MEDS: AMITRIPTYLINE 25 MG TABLET PO SCH (20:32)
[2021-06-21] MEDS: QUEtiapine 100 MG TABLET PO SCH (20:32)
[2021-06-21] MEDS: DOCUSATE SODIUM 100 MG CAPSULE PO SCH (21:11)
[2021-06-22] MEDS: HEPARIN DRIP 25,000 UNITS/500 ML PREMIX IV SCH ×2 (00:17→12:34)
[2021-06-22] MEDS: HYOSCYAMINE 0.125 MG TABLET PO SCH ×4 (01:03→18:01)
[2021-06-22 02:04] LABS: Basophils % 0.8 % (0.0-0.8); Eosinophils # 0.1 10*3/uL (0.0-0.87); Eosinophils % 2.7 % (0.00-10.9); Hemoglobin 11.1 GM/DL (12.0-16.0); Immature Granulocytes % 0.6 %; Immature Granulocytes Absolute 0.03 #; Lymphocytes # 1.9 10*3/uL (1.4-4.0); Lymphocytes % 36.4 % (21.3-54.2); Mean Corpuscular HGB Conc 32.6 GM/DL (32-36); Mean Corpuscular Volume 98.6 FL (87-102); Mean Platelet Volume 9.9 FL (9.6-12.0); Monocytes % 11.9 % (1.7-12.7); Neutrophils % 47.6 % (38.7-73.9); Platelet Count 207 T/CUMM (130-400); Red Blood Count 3.45 MC/CUMM (3.8-5.5); Red Cell Distribution Width 12.9 % (9.3-17.3); White Blood Count 5.2 T/CUMM (4-12)
[2021-06-22 02:15] LABS: INR 1.6; PT Patient Result 17.5 SECS (10.5-12.0)
[2021-06-22 02:26] LABS: Calcium 9.4 MG/DL (8.5-10.1); Osmolality,Calculated 272.8 MOS/KG (273-304)
[2021-06-22] MEDS: HYDROmorphone 2 MG/1 ML VIAL IV PRN ×4 (03:16→21:07)
[2021-06-22] MEDS: HYDROCORTISONE 25 MG SUPP RECTAL PRN ×2 (06:10→20:58)
[2021-06-22] MEDS: METOPROLOL TARTRATE 25 MG TABLET PO SCH ×2 (08:38→20:46)
[2021-06-22] MEDS: PANTOPRAZOLE 40 MG TABLET PO SCH (08:38)
[2021-06-22] MEDS: GABAPENTIN 600 MG TABLET PO SCH ×3 (08:38→20:46)
[2021-06-22] MEDS: amLODIPine 5 MG TABLET PO SCH (08:39)
[2021-06-22] MEDS: CHOLECALCIFEROL 5,000 UNIT TABLET PO SCH (08:39)
[2021-06-22] MEDS: LIDOCAINE 5% PATCH TRANSDERM SCH (08:39)
[2021-06-22] MEDS: NITROGLYCERIN 2% OINT 1 INCH/GM PACK TOP SCH ×2 (08:39→20:46)
[2021-06-22] MEDS: SPIRONOLACTONE 25 MG TABLET PO SCH (08:39)
[2021-06-22] MEDS: tiZANidine 4 MG TABLET PO SCH ×2 (08:39→20:46)
[2021-06-22] MEDS: DOCUSATE SODIUM 100 MG CAPSULE PO SCH ×2 (08:39→20:46)
[2021-06-22] MEDS: INSULIN REGULAR 100 UNIT/ML SUBCUT SCH ×4 (08:40→20:46)
[2021-06-22] MEDS: LACTATED RINGERS 1,000 ML IV SCH (08:40)
[2021-06-22] MEDS: WARFARIN 5 MG TABLET PO SCH (17:42)
[2021-06-22] MEDS: DONEPEZIL 10 MG TABLET PO SCH (20:46)
[2021-06-22] MEDS: ATORVASTATIN 80 MG TABLET PO SCH (20:46)
[2021-06-22] MEDS: QUEtiapine 100 MG TABLET PO SCH (20:46)
[2021-06-22] MEDS: AMITRIPTYLINE 25 MG TABLET PO SCH (20:46)
[2021-06-23] MEDS: HYOSCYAMINE 0.125 MG TABLET PO SCH ×4 (00:58→18:13)
[2021-06-23] MEDS: HYDROmorphone 2 MG/1 ML VIAL IV PRN ×4 (04:21→16:42)
[2021-06-23 05:08] LABS: Basophils # 0.1 10*3/uL (0.0-0.2); Basophils % 0.9 % (0.0-0.8); Eosinophils # 0.2 10*3/uL (0.0-0.87); Eosinophils % 2.8 % (0.00-10.9); Hematocrit 34.9 VOL% (35.7-47.0); Hemoglobin 11.4 GM/DL (12.0-16.0); Immature Granulocytes % 0.4 %; Immature Granulocytes Absolute 0.02 #; Lymphocytes # 1.9 10*3/uL (1.4-4.0); Lymphocytes % 34.6 % (21.3-54.2); Mean Corpuscular HGB Conc 32.7 GM/DL (32-36); Mean Corpuscular Volume 99.7 FL (87-102); Mean Platelet Volume 10.4 FL (9.6-12.0); Neutrophils % 49.3 % (38.7-73.9); Platelet Count 266 T/CUMM (130-400); Red Cell Distribution Width 12.9 % (9.3-17.3); White Blood Count 5.4 T/CUMM (4-12)
[2021-06-23 05:19] LABS: INR 1.7; PT Patient Result 18.2 SECS (10.5-12.0)
[2021-06-23 05:23] LABS: Calcium 9.7 MG/DL (8.5-10.1); Osmolality,Calculated 273.8 MOS/KG (273-304); Potassium 4.3 MMOL/L (3.5-5.1)
[2021-06-23] MEDS: INSULIN REGULAR 100 UNIT/ML SUBCUT SCH ×4 (08:14→20:28)
[2021-06-23] MEDS: LACTATED RINGERS 1,000 ML IV SCH (08:16)
[2021-06-23] MEDS: amLODIPine 5 MG TABLET PO SCH (10:10)
[2021-06-23] MEDS: PANTOPRAZOLE 40 MG TABLET PO SCH (10:10)
[2021-06-23] MEDS: CHOLECALCIFEROL 5,000 UNIT TABLET PO SCH (10:11)
[2021-06-23] MEDS: HYDROCORTISONE 25 MG SUPP RECTAL PRN (10:12)
[2021-06-23] MEDS: LIDOCAINE 5% PATCH TRANSDERM SCH (10:14)
[2021-06-23] MEDS: SPIRONOLACTONE 25 MG TABLET PO SCH (10:21)
[2021-06-23] MEDS: DOCUSATE SODIUM 100 MG CAPSULE PO SCH ×2 (10:22→20:28)
[2021-06-23] MEDS: METOPROLOL TARTRATE 25 MG TABLET PO SCH ×2 (10:23→20:28)
[2021-06-23] MEDS: GABAPENTIN 600 MG TABLET PO SCH ×3 (10:24→20:28)
[2021-06-23] MEDS: tiZANidine 4 MG TABLET PO SCH ×2 (10:25→20:28)
[2021-06-23] MEDS: NITROGLYCERIN 2% OINT 1 INCH/GM PACK TOP SCH (10:26)
[2021-06-23] MEDS: HEPARIN DRIP 25,000 UNITS/500 ML PREMIX IV SCH (14:06)
[2021-06-23] MEDS: WARFARIN 5 MG TABLET PO SCH (17:09)
[2021-06-23] MEDS: DIAZEPAM 2 MG TABLET PO PRN (18:10)
[2021-06-23] MEDS: DONEPEZIL 10 MG TABLET PO SCH (20:28)
[2021-06-23] MEDS: ATORVASTATIN 80 MG TABLET PO SCH (20:28)
[2021-06-23] MEDS: AMITRIPTYLINE 25 MG TABLET PO SCH (20:28)
[2021-06-23] MEDS: QUEtiapine 100 MG TABLET PO SCH (20:28)
[2021-06-24] MEDS: HYOSCYAMINE 0.125 MG TABLET PO SCH ×4 (01:47→18:04)
[2021-06-24] MEDS: HYDROmorphone 2 MG/1 ML VIAL IV PRN ×2 (01:51→06:57)
[2021-06-24 05:07] LABS: INR 2.2
[2021-06-24] MEDS: LIDOCAINE 5% PATCH TRANSDERM SCH (08:39)
[2021-06-24] MEDS: DIAZEPAM 2 MG TABLET PO PRN (08:40)
[2021-06-24] MEDS: LACTATED RINGERS 1,000 ML IV SCH (08:40)
[2021-06-24] MEDS: SPIRONOLACTONE 25 MG TABLET PO SCH (08:40)
[2021-06-24] MEDS: amLODIPine 5 MG TABLET PO SCH (08:40)
[2021-06-24] MEDS: METOPROLOL TARTRATE 25 MG TABLET PO SCH ×2 (08:40→20:32)
[2021-06-24] MEDS: tiZANidine 4 MG TABLET PO SCH ×2 (08:40→20:37)
[2021-06-24] MEDS: DOCUSATE SODIUM 100 MG CAPSULE PO SCH ×2 (08:40→20:32)
[2021-06-24] MEDS: PANTOPRAZOLE 40 MG TABLET PO SCH (08:40)
[2021-06-24] MEDS: CHOLECALCIFEROL 5,000 UNIT TABLET PO SCH (08:40)
[2021-06-24] MEDS: GABAPENTIN 600 MG TABLET PO SCH ×3 (08:40→20:32)
[2021-06-24] MEDS: INSULIN REGULAR 100 UNIT/ML SUBCUT SCH ×4 (08:41→20:33)
[2021-06-24] MEDS: fentaNYL 12 MCG/HR PATCH TRANSDERM SCH (08:46)
[2021-06-24] MEDS: HEPARIN DRIP 25,000 UNITS/500 ML PREMIX IV SCH (14:17)
[2021-06-24] MEDS: HYDROCORTISONE 25 MG SUPP RECTAL PRN (16:00)
[2021-06-24] MEDS: WARFARIN 5 MG TABLET PO SCH (18:04)
[2021-06-24] MEDS: AMITRIPTYLINE 25 MG TABLET PO SCH (20:32)
[2021-06-24] MEDS: QUEtiapine 100 MG TABLET PO SCH (20:32)
[2021-06-24] MEDS: ATORVASTATIN 80 MG TABLET PO SCH (20:32)
[2021-06-24] MEDS: DONEPEZIL 10 MG TABLET PO SCH (20:32)
[2021-06-25] MEDS: HYOSCYAMINE 0.125 MG TABLET PO SCH ×2 (01:03→07:02)
[2021-06-25 06:31] LABS: Basophils # 0.1 10*3/uL (0.0-0.2); Basophils % 1.4 % (0.0-0.8); Eosinophils # 0.2 10*3/uL (0.0-0.87); Eosinophils % 3.4 % (0.00-10.9); Hematocrit 41.6 VOL% (35.7-47.0); Hemoglobin 12.8 GM/DL (12.0-16.0); Immature Granulocytes % 0.9 %; Immature Granulocytes Absolute 0.04 #; Lymphocytes % 46.5 % (21.3-54.2); Mean Corpuscular HGB Conc 30.8 GM/DL (32-36); Mean Corpuscular Volume 106.1 FL (87-102); Mean Platelet Volume 9.8 FL (9.6-12.0); Monocytes % 9.8 % (1.7-12.7); Platelet Count 210 T/CUMM (130-400); Red Blood Count 3.92 MC/CUMM (3.8-5.5); Red Cell Distribution Width 12.9 % (9.3-17.3); White Blood Count 4.4 T/CUMM (4-12)
[2021-06-25 06:31] LABS: PT Patient Result 21.4 SECS (10.5-12.0)
[2021-06-25 06:34] LABS: Calcium 9.4 MG/DL (8.5-10.1); Potassium 4.1 MMOL/L (3.5-5.1)
[2021-06-25 07:01] LABS: Eosinophils 2 % (0-10); Lymphocytes 58 % (20-55); Nucleated Red Blood Cells 1 (0-5); Segmented Neutrophils 37 % (50-85); Total Cells Counted 100
[2021-06-25 07:02] LABS: Hypochromasia 1+; Microcytosis 1+
[2021-06-25 07:03] LABS: Ovalocytes Few; Platelet Estimate Normal
[2021-06-25] MEDS: INSULIN REGULAR 100 UNIT/ML SUBCUT SCH ×2 (07:42→11:40)
[2021-06-25] MEDS: GABAPENTIN 600 MG TABLET PO SCH (08:38)
[2021-06-25] MEDS: amLODIPine 5 MG TABLET PO SCH (08:38)
[2021-06-25] MEDS: METOPROLOL TARTRATE 25 MG TABLET PO SCH (08:38)
[2021-06-25] MEDS: PANTOPRAZOLE 40 MG TABLET PO SCH (08:38)
[2021-06-25] MEDS: LIDOCAINE 5% PATCH TRANSDERM SCH (08:38)
[2021-06-25] MEDS: DOCUSATE SODIUM 100 MG CAPSULE PO SCH (08:38)
[2021-06-25] MEDS: SPIRONOLACTONE 25 MG TABLET PO SCH (08:38)
[2021-06-25] MEDS: tiZANidine 4 MG TABLET PO SCH (08:38)
[2021-06-25] MEDS: CHOLECALCIFEROL 5,000 UNIT TABLET PO SCH (08:38)
[2021-06-25] MEDS: LACTATED RINGERS 1,000 ML IV SCH (09:33)
[2021-06-25 12:43] VITALS: BP 113/75
== END 2021-06-25 13:30 | disposition home health service (06) | DRG 394 ==
LOC: N.EDINP 16:39 → N.ED 16:39 → N.EDINP 22:04 → N.3E 22:18
PROVIDERS: ADMIT Internal Medicine; ATTEND Internal Medicine

== ENCOUNTER 2022-03-17 17:04 | Observation (INO) ==
[2022-03-17] MEDS ORDERED: MORPHINE 2 MG/1 ML SYRINGE IV STA ×2 (19:00→19:52)
[2022-03-17] MEDS ORDERED: NITROGLYCERIN SL 0.4 MG TABLET SL STA (19:04)
[2022-03-17] MEDS: ONDANSETRON 4 MG/2 ML VIAL IV PRN (19:31)
[2022-03-17 19:47] LABS: INR 1.9; PT Patient Result 20.1 SECS (10.5-12.0)
[2022-03-17] MEDS ORDERED: MORPHINE 2 MG/1 ML SYRINGE IV PRN (21:11)
[2022-03-17] MEDS ORDERED: GLUCAGON 1 MG VIAL IM PRN (21:11)
[2022-03-17 21:24] LABS: Basophils % 0.6 % (0.0-0.8); Eosinophils # 0.1 10*3/uL (0.0-0.87); Hematocrit 34.8 VOL% (35.7-47.0); Hemoglobin 11.5 GM/DL (12.0-16.0); Immature Granulocytes % 0.3 %; Immature Granulocytes Absolute 0.02 #; Lymphocytes # 2.2 10*3/uL (1.4-4.0); Lymphocytes % 31.9 % (21.3-54.2); Mean Platelet Volume 10.3 FL (9.6-12.0); Monocytes # 0.6 10*3/uL (0.11-0.8); Monocytes % 8.7 % (1.7-12.7); Neutrophils % 56.5 % (38.7-73.9); Platelet Count 254 T/CUMM (130-400); Red Blood Count 3.55 MC/CUMM (3.8-5.5); Red Cell Distribution Width 12.7 % (9.3-17.3); White Blood Count 6.9 T/CUMM (4-12)
[2022-03-17] MEDS ORDERED: DEXTROSE 10% 250 ML BAG IV PRN (21:41)
[2022-03-17] MEDS ORDERED: ENOXAPARIN 80 MG/0.8 ML SYRINGE SUBCUT SCH (22:00)
[2022-03-17 23:00] LABS: Alanine Aminotransferase 26 U/L (13-56); Albumin 3.5 G/DL (3.4-5.0); Alkaline Phosphatase 85 U/L (45-117); Aspartate Amino Transferase 25 U/L (0-37); Bilirubin,Total < 0.39 MG/DL (0.20-1.00); Blood Urea Nitrogen 14 MG/DL (7-18); Calcium 9.1 MG/DL (8.5-10.1); Carbon Dioxide 28 MMOL/L (21-32); Chloride 108 MMOL/L (98-107); Glucose 103 MG/DL (74-106); Osmolality,Calculated 283.1 MOS/KG (273-304); Potassium 3.5 MMOL/L (3.5-5.1); Sodium 142 MMOL/L (136-145); Total Protein 6.9 G/DL (6.4-8.2)
[2022-03-18] MEDS ORDERED: traZODone 50 MG TABLET PO PRN (00:23)
[2022-03-18] MEDS: ONDANSETRON 4 MG/2 ML VIAL IV PRN (00:43)
[2022-03-18] MEDS ORDERED: ACETAMINOPHEN 500 MG TABLET PO SCH (06:00)
[2022-03-18] MEDS ORDERED: ACETAMINOPHEN 500 MG TABLET PO PRN (06:00)
[2022-03-18 07:18] LABS: Basophils % 0.4 % (0.0-0.8); Eosinophils # 0.1 10*3/uL (0.0-0.87); Eosinophils % 2.7 % (0.00-10.9); Hematocrit 32.5 VOL% (35.7-47.0); Immature Granulocytes % 0.2 %; Immature Granulocytes Absolute 0.01 #; Mean Corpuscular HGB Conc 33.8 GM/DL (32-36); Mean Platelet Volume 9.6 FL (9.6-12.0); Monocytes # 0.5 10*3/uL (0.11-0.8); Monocytes % 10.1 % (1.7-12.7); Neutrophils % 67.6 % (38.7-73.9); Platelet Count 213 T/CUMM (130-400); Red Blood Count 3.35 MC/CUMM (3.8-5.5); Red Cell Distribution Width 12.7 % (9.3-17.3); White Blood Count 5.3 T/CUMM (4-12)
[2022-03-18 07:30] LABS: INR 1.8; PT Patient Result 18.7 SECS (10.5-12.0)
[2022-03-18] MEDS: INSULIN REGULAR 100 UNIT/ML SUBCUT SCH ×3 (07:33→15:54)
[2022-03-18 07:43] LABS: Albumin 3.1 G/DL (3.4-5.0); Bilirubin,Total 0.4 MG/DL (0.20-1.00); Calcium 8.9 MG/DL (8.5-10.1); Potassium 3.2 MMOL/L (3.5-5.1); Risk Ratio 2.63; Total Protein 6.7 G/DL (6.4-8.2); VLDL Cholesterol 27.8 MG/DL
[2022-03-18] MEDS ORDERED: POLYETHYLENE GLYCOL POWDER 17 GM PACK PO PRN (07:47)
[2022-03-18] MEDS ORDERED: NITROGLYCERIN SL 0.4 MG TABLET SL PRN (07:47)
[2022-03-18] MEDS ORDERED: SPIRONOLACTONE 25 MG TABLET PO SCH (09:00)
[2022-03-18] MEDS ORDERED: PANTOPRAZOLE 40 MG TABLET PO SCH (09:00)
[2022-03-18] MEDS ORDERED: METOPROLOL TARTRATE 25 MG TABLET PO SCH (09:00)
[2022-03-18] MEDS ORDERED: amLODIPine 5 MG TABLET PO SCH (09:00)
[2022-03-18] MEDS ORDERED: WARFARIN 2 MG TABLET PO ONE (09:17)
[2022-03-18] MEDS ORDERED: POTASSIUM CHLORIDE 20 MEQ TABLET PO ONE (10:33)
[2022-03-18] MEDS ORDERED: diphenhydrAMINE CAP 25 MG CAPSULE PO ONE (12:48)
[2022-03-18] MEDS ORDERED: DIAZEPAM 5 MG TABLET PO ONE (12:48)
[2022-03-18] MEDS ORDERED: SODIUM CHLORIDE 0.45% 1,000 ML IV SCH (13:00)
[2022-03-18] MEDS ORDERED: HEPARIN/NACL 0.9% 2 UNITS/ML 2,000 UNIT/1,000 ML BAG IV ONE (13:38)
[2022-03-18] MEDS ORDERED: MIDAZOLAM 2 MG/2 ML VIAL ONE (13:51)
[2022-03-18] MEDS ORDERED: HYDROmorphone 1 MG/1 ML SYRINGE ONE (13:51)
[2022-03-18] MEDS ORDERED: VERAPAMIL 5 MG/2 ML VIAL ONE (13:54)
[2022-03-18] MEDS ORDERED: NITROGLYCERIN DRIP 50 MG/250 ML BOTTLE IV ONE (13:54)
[2022-03-18 17:45] VITALS: BP 103/86
[2022-03-18] MEDS ORDERED: WARFARIN 5 MG TABLET PO SCH (18:00)
[2022-03-18] MEDS ORDERED: DONEPEZIL 10 MG TABLET PO SCH (21:00)
== END 2022-03-18 18:07 | disposition home or self-care (01) ==
LOC: N.EDINP 17:04 → N.ED 17:04 → N.TELES 23:18
PROVIDERS: ADMIT Internal Medicine; ATTEND Internal Medicine